=== PATIENT | female | born 1975 | race African-American/Black ===

== ENCOUNTER 2016-08-30 09:15 | Emergency (ER) | payer SELFPAY ==
--- NOTE | 2016-08-30 09:19 | NUR ---
CALLED FOR TRIAGE, NO ANSWER
--- NOTE | 2016-08-30 09:25 | NUR ---
CALLED FOR TRIAGE, NO RESPONSE, PT PHYSICALLY NOT IN WAITING ROOM
== END 2016-08-30 09:40 | disposition home or self-care (01) ==
LOC: ER 09:17
DX: Z53.21 Procedure and treatment not carried out due to patient leaving prior to being seen by health care provider (principal)

== ENCOUNTER 2025-02-26 13:36 | Emergency (ER) | payer OTHER ==
[~2025-02-26] VITALS: Ht 167.6 cm; Wt 66.2 kg
[2025-02-26 14:23] LABS: FRACTIONATED INSPIRED OXYGEN-V 21.0 %; SITE, VBG VBG - N/A; VBG BASE EXCESS 1.3 mmol/L (-2.0-3.0); VBG HCO3 27.1 mmol/L (22.0-29.0); VBG MetHb 1.7 % (0.5-1.5); VBG OXYGEN SATURATION 20.0 % (60.0-85.0); VBG PCO2 48.2 mmHg (38.0-54.0); VBG PH 7.368 (7.320-7.430); VBG PO2 15.7 mmHg (23.0-48.0); VBG TOTAL HEMOGLOBIN 11.0 G/dL (12.0-16.0)
[2025-02-26] MEDS ORDERED: METOCLOPRAMIDE HCL 10 MG/2 ML VIAL ONE (14:27)
[2025-02-26 14:33] LABS: PLATELET COUNT (AUTO) 306 K/uL (150-450); RED BLOOD CELL COUNT(AUTO) 4.42 MIL/uL (4.0-5.2); RED CELL DISTRIBUTION WIDTH 16.8 % (11.5-15.0); WHITE BLOOD COUNT (AUTO) 4.6 K/uL (4.3-11.0)
[2025-02-26] MEDS: IV NS 0.9% 1,000 ML BAG IV ONE (14:33)
[2025-02-26] MEDS: METOCLOPRAMIDE HCL 10 MG/2 ML VIAL IV ONE (14:34)
[2025-02-26 14:36] LABS: CALCIUM, SERUM 9.5 mg/dL (8.5-10.1); CREATININE 0.7 mg/dL (0.6-1.3); SODIUM SERUM 134 mmol/L (136-145); UREA NITROGEN, BLOOD 12 mg/dL (7-18)
[2025-02-26 14:42] LABS: ASPARTATE AMINOTRANSFERASE 12 U/L (15-37); TOTAL PROTEIN, SERUM 8.0 g/dL (6.4-8.2)
[2025-02-26 14:50] LABS: ACETONE, SERUM NEGATIVE (NEGATIVE)
[2025-02-26] MEDS ORDERED: METO-295 PO (15:06)
[2025-02-26 16:50] VITALS: BP 128/88; TEMP 97.9; O2SAT 100
== END 2025-02-26 16:52 | disposition home or self-care (01) ==
LOC: ER 13:45
DX: R11.2 Nausea with vomiting, unspecified (principal); E11.65 Type 2 diabetes mellitus with hyperglycemia; B86 Scabies; Z59.00 Homelessness unspecified; Z79.84 Long term (current) use of oral hypoglycemic drugs
CPT/HCPCS: 99285; 96374; 96361; 82803 ×2; 85025; 82010; 36415; 80053; 82962 ×2; J2765; J7030